=== PATIENT | male | born 1955 | race Caucasian/White ===

== ENCOUNTER 2017-06-04 02:53 | Emergency (ER) | payer OTHER ==
[~2017-06-04] VITALS: Ht 177.8 cm; Wt 106.8 kg
[2017-06-04] MEDS: MORPHINE SULFATE 4 MG/ML DISP.SYRIN. IV ONE ×2 (03:19→04:37)
[2017-06-04] MEDS: IV NORMAL SALINE 1,000ML 1,000 ML IV ONE ×2 (03:19→04:00)
[2017-06-04] MEDS: KETOROLAC 15 MG/ML VIAL. IV ONE (03:19)
[2017-06-04 03:32] LABS: HEMATOCRIT 44.7 % (39.0-53.0); HEMOGLOBIN 15.5 g/dL (13.0-17.5); MEAN CORPUSCULAR HEMOGLOBIN 32 pg (25-35); MEAN CORPUSCULAR HGB CONC 35 g/dL (31-37); MEAN CORPUSCULAR VOLUME 92 fL (79-100); PLATELET COUNT 856 x10^3/uL (140-400); RED BLOOD COUNT 4.87 x10^6/uL (4.30-5.70); RED CELL DISTRIBUTION WIDTH 13.5 % (11.5-14.5); WHITE BLOOD COUNT 12.6 x10^3/uL (4.0-11.0)
[2017-06-04] MEDS ORDERED: ONDANSETRON PF 4 MG/2 ML VIAL. ONE (03:37)
[2017-06-04 03:45] LABS: ALBUMIN 3.8 g/dL (3.4-5.0); ALBUMIN/GLOBULIN RATIO 1.1 (1.0-1.7); CALCIUM 9.1 mg/dL (8.5-10.1); CREATININE 0.9 mg/dL (0.7-1.3); GFR 86.1; POTASSIUM 3.5 mmol/L (3.5-5.1); TOTAL BILIRUBIN 0.4 mg/dL (0.2-1.0); TOTAL PROTEIN 7.3 g/dL (6.4-8.2)
--- NOTE | 2017-06-04 03:51 | RAD ---
CT abdomen and pelvis without contrast. HISTORY: Left flank pain CT scan of the abdomen and pelvis was done without contrast. Comparison is made with an old study from September 2009. Lung bases are clear. There is no effusion. There is hypertrophic change in the spine. There is lower lumbar facet arthritis. A liver lesion is not identified. There is no calcified gallstone. Spleen and adrenal glands are normal. Pancreas is normal. There are 3 small calculi in the lower left kidney. There are 2 small calculi on the low in the lower right kidney best seen on the coronal images. There is left hydronephrosis. There is a 8 mm calculus in the proximal left ureter. There are multiple prostate calcifications. Appendix is normal. Bowel pattern is normal. There is no adenopathy or ascites. IMPRESSION: 1. Intrarenal calculi both kidneys. 2. 8 mm calculus in the proximal left ureter with left hydronephrosis. RS Compliance Statement: One or more of the following individualized dose reduction techniques were utilized for this examination: 1. Automated exposure control 2. Adjustment of the mA and/or kV according to patient size 3. Use of iterative reconstruction technique Electronically signed by: Rk Bradley MD (06/04/2017 3:48 AM) [facility]
[2017-06-04] MEDS: ONDANSETRON PF 4 MG/2 ML VIAL. IV ONE (04:00)
[2017-06-04] MEDS ORDERED: TAMS0.4C97 PO (04:05)
[2017-06-04] MEDS ORDERED: HYDR-971 PO (04:05)
[2017-06-04] MEDS ORDERED: KETO10TA PO (04:05)
--- NOTE | 2017-06-04 04:05 | PHYS DOC ---
Past History Past Medical History: Arthritis, Pancreatitis, Other Past Surgical History: Tonsillectomy, Other Alcohol Use: Occasionally Drug Use: None Adult General Chief Complaint Chief Complaint: FLANK PAIN HPI HPI Patient is a 61-year-old male who is being his usual state of health up until tonight he was asleep and he woke up with sudden left flank pain, pain felt like he was radiating to the abdomen. Patient denies any fevers, chills, rashes , trauma or changes in the urine or discomfort with urination. Patient denies vomiting or diarrhea. Review of Systems Review of Systems Constitutional: Denies fever or chills [] HENT: Denies pain Respiratory: Denies cough or shortness of breath [] Cardiovascular: No chest pain GI: As per history of present illness : Denies dysuria or hematuria [] Musculoskeletal: Per history of present illness Integument: Denies rash or skin lesions [] Neurologic: Denies headache, focal weakness or sensory changes [] All other systems were reviewed and found to be within normal limits, except as documented in this note. Current Medications Current Medications Current Medications Medications (Trade) Dose Ordered Sig/[place] Start Time Stop Time Status Last Admin Dose Admin Ketorolac Tromethamine (Toradol) 15 mg 1X ONCE 06/04/17 03:15 06/04/17 03:20 DC 06/04/17 03:19 15 MG Morphine Sulfate (Morphine 4mg Syringe) 4 mg 1X ONCE 06/04/17 03:15 06/04/17 03:20 DC 06/04/17 03:19 4 MG Ondansetron HCl (Zofran) 4 mg 1X ONCE 06/04/17 04:00 06/04/17 04:01 Sodium Chloride 1,000 ml @ 1,000 mls/hr 1X ONCE 06/04/17 03:15 06/04/17 04:14 06/04/17 03:19 1,000 MLS/HR Allergies Allergies Allergies Coded Allergies Type Severity Reaction Last Updated Verified latex Allergy Intermediate rash 07/16/14 Yes Physical Exam Physical Exam Constitutional: Well developed, well nourished, moderate distress, non-toxic appearance. [] HENT: Normocephalic, atraumatic, bilateral external ears normal, oropharynx dry , no oral exudates, nose normal. [] Eyes: EOMI, conjunctiva normal, no discharge. [] Neck: Normal range of motion, trachea midline no stridor. [] Cardiovascular:Heart rate regular rhythm, no murmur, equal pulses, normal perfusion Lungs & Thorax: Bilateral breath sounds clear to auscultation and tachypnea Abdomen: Bowel sounds normal, soft, no tenderness, no masses, no pulsatile masses. [] Skin: Warm, dry, no erythema, no rash. [] Back: No tenderness, no CVA tenderness. [] Extremities: No tenderness, no DVT, ROM intact, no edema. [] Neurologic: Alert and oriented X 3, normal motor function, ambulates without assistance in the ED, no focal deficits noted. [] Psychologic: Affect normal, judgement normal, mood normal. [] Current Patient Data Vital Signs Vital Signs Date Time Temp Pulse Resp B/P (MAP) Pulse Ox O2 Delivery O2 Flow Rate FiO2 06/04/17 02:53 97.8 90 43 100 Room Air Lab Results Laboratory Tests Test 06/04/17 03:15 White Blood Count 12.6 x10^3/uL (4.0-11.0) H Red Blood Count 4.87 x10^6/uL (4.30-5.70) Hemoglobin 15.5 g/dL (13.0-17.5) Hematocrit 44.7 % (39.0-53.0) Mean Corpuscular Volume 92 fL (79-100) Mean Corpuscular Hemoglobin 32 pg (25-35) Mean Corpuscular Hemoglobin Concent 35 g/dL (31-37) Red Cell Distribution Width 13.5 % (11.5-14.5) Platelet Count 856 x10^3/uL (140-400) H Platelet Estimate Pending Sodium Level 141 mmol/L (136-145) Potassium Level 3.5 mmol/L (3.5-5.1) Chloride Level 104 mmol/L (98-107) Carbon Dioxide Level 26 mmol/L (21-32) Anion Gap 11 (6-14) Blood Urea Nitrogen 12 mg/dL (8-26) Creatinine 0.9 mg/dL (0.7-1.3) Estimated GFR (Cockcroft-Gault) 86.1 BUN/Creatinine Ratio 13 (6-20) Glucose Level 127 mg/dL (70-99) H Calcium Level 9.1 mg/dL (8.5-10.1) Total Bilirubin 0.4 mg/dL (0.2-1.0) Aspartate Amino Transferase (AST) 23 U/L (15-37) Alanine Aminotransferase (ALT) 44 U/L (16-63) Alkaline Phosphatase 68 U/L (46-116) Total Protein 7.3 g/dL (6.4-8.2) Albumin 3.8 g/dL (3.4-5.0) Albumin/Globulin Ratio 1.1 (1.0-1.7) Lipase 173 U/L (73-393) EKG EKG [] Radiology/Procedures Radiology/Procedures CT shows 8 millimeter stone proximal to the left kidney[] left-sided hydronephrosis Course & Med Decision Making Course & Med Decision Making Pertinent Labs and Imaging studies reviewed. (See chart for details) 0401 patient's pain is well-controlled, patient states he has a urologist he will follow-up with udip only shows trace leuk est, no nitrate [] Dragon Disclaimer Dragon Disclaimer This electronic medical record was generated, in whole or in part, using a voice recognition dictation system. Departure Departure: Impression: Primary Impression: Kidney stone on left side Disposition: HOME, SELF-CARE Condition: STABLE Referrals: SUSHMA NEVES (PCP) You told us you have a urologist, please call him today to make an appointment for follow-up of this ED visit Patient Instructions: Diet for Kidney Stones, Kidney Stones Scripts Hydrocodone Bit/Acetaminophen (NORCO 5-325 TABLET) 1 Each Tablet 1-2 TAB PO Q4-6HRS for 3 Days, #16 TAB Prov: Tony SERRA MD 06/04/17 Tamsulosin Hcl (FLOMAX) 0.4 Mg Cap.er.24h 1 CAP PO DAILY for 7 Days, #7 CAP 11 Refills Prov: Tony SERRA MD 06/04/17 Ketorolac Tromethamine (KETOROLAC TROMETHAMINE) 10 Mg Tablet 1 TAB PO TID, #15 TAB Prov: Tony SERRA MD 06/04/17 Tony SERRA MD Jun 04, 2017 04:05
[2017-06-04 04:42] LABS: PLT ESTIMATE INCREASED (ADEQUATE)
[2017-06-04 05:25] VITALS: BP 121/73
[2017-06-04 05:54] LABS: BACTERIA,URINE FEW /HPF (0-FEW); BILIRUBIN,URINE NEG (NEG); CLARITY,URINE CLEAR; COLOR,URINE YELLOW; GLUCOSE,URINE NEG (NEG); NITRITE,URINE NEG (NEG); UROBILINOGEN,URINE 0.2 mg/dL (0.2 mg/dL)
== END 2017-06-04 05:28 | disposition home or self-care (01) ==
LOC: ER 02:53
DX: N13.2 Hydronephrosis with renal and ureteral calculous obstruction (principal); M19.90 Unspecified osteoarthritis, unspecified site; Z91.040 Latex allergy status
CPT/HCPCS: 36415; 74176; 80053; 81001; 83690; 85027; 87086; 96361; 96374; 96375; 96376; 99285; J1885; J2270; J2405; J7030